=== PATIENT | female | born 1990 | race Caucasian/White ===

== ENCOUNTER 2021-04-01 15:08 | Inpatient (IN) | payer OTHER ==
[2021-04-01] MEDS: Lactated Ringers 1,000 ML IV SCH (17:20)
[2021-04-01] MEDS ORDERED: Naloxone 2 MG/2 ML Syringe IVPUSH PRN (17:21)
[2021-04-01] MEDS ORDERED: Misoprostol 400 MCG (4 X 100 MCG TAB) RECTAL PRN (17:21)
[2021-04-01] MEDS ORDERED: ceFAZolin 2 GM in Premix Bag 1 BAG IV ONE (17:21)
[2021-04-01] MEDS ORDERED: Acetaminophen 325 MG Tab PO PRN (17:21)
[2021-04-01] MEDS ORDERED: Carboprost Tromethamine 250 MCG/1 ML Amp IM PRN (17:21)
[2021-04-01] MEDS ORDERED: Methylergonovine 0.2 MG/1 ML Amp IM PRN (17:21)
[2021-04-01] MEDS ORDERED: Tranexamic Acid 1,000 MG in Sodium Chloride 0.9% 100 ML IV PRN (17:21)
[2021-04-01] MEDS ORDERED: diphenhydrAMINE 50 MG/ML SDV IVPUSH PRN (17:21)
[2021-04-01] MEDS ORDERED: Citric Acid/Sodium Citrate Solution 30 ML Cup PO ONE (17:21)
[2021-04-01] MEDS ORDERED: ePHEDrine 50 MG/ML SDV IVPUSH PRN (17:21)
[2021-04-01] MEDS ORDERED: Ondansetron 4 MG/2 ML SDV IVPUSH PRN (17:21)
[2021-04-01] MEDS ORDERED: Oxytocin/Normal Saline 30 UNIT/500 ML BAG IV SCH (17:30)
[2021-04-01] MEDS ORDERED: Ketorolac 30 MG/ML SDV IVPUSH ONE (18:00)
[2021-04-01] MEDS ORDERED: Tranexamic Acid 1,000 MG in Sodium Chloride 0.9% 100 ML IV ONE (18:00)
[2021-04-01] MEDS ORDERED: Dexamethasone 4 MG/ML SDV IV ONE (18:00)
[2021-04-01] MEDS ORDERED: Morphine PF 10 MG/10 ML SDV ONE (18:00)
[2021-04-01] MEDS ORDERED: Ondansetron 4 MG/2 ML SDV IV ONE (18:00)
[2021-04-01] MEDS ORDERED: Lactated Ringers 1,000 ML IV ONE (18:00)
--- NOTE | 2021-04-01 22:38 | HP ---
PATIENT IDENTIFICATION: Beena Grant is a 30-year-old G3, P2-0-0-2, intrauterine at 37-4/7 weeks confirmed with 20-2/7 week ultrasound, who presents with contractions. HISTORY OF PRESENT ILLNESS: The patient states contractions have been ongoing since earlier today, increasing in frequency and intensity to the point that she feels miserable, feels them in the lower abdomen, radiating to the back, feels tightening with them, and nothing seems to make them better and time has made them worse. To put this in context, she has had 2 previous C-sections, requests repeat low transverse . Her is complicated by impaired glucose tolerance with a negative 3-hour GTT and she is GBS negative. She was initially evaluated by nurse and approximately 2 hours later had cervical change. Therefore, is being admitted for repeat low transverse with contractions with cervical change. Records called for, reviewed as below, and supplemented by patient history. ALLERGIES: Bees cause her to swell up. MEDICATIONS: Listed as albuterol as needed, vitamins. 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 Past Surgical History: Remarkable for tonsil and adenoidectomy, myringotomy with intubation, and 2 previous C-sections as below. OB HISTORY: 1. First was done on 09/01/2014 at 41-3/7 weeks, delivered female, 7 pounds 5.3 ounces with intolerance, excessive bleeding, OP presentation. Meconium and amniotic fluid and intrapartum hemorrhage. 2. 12/28/2016, 40-1/7 weeks term male, 7 pounds 15 ounces. Attempted and then decided to proceed with repeat low transverse . ANTEPARTUM LABORATORIES: Reveal ABO blood type A positive, negative antibody. Rubella immune. Syphilis antibody is nonreactive. Negative hepatitis B surface antigen. Negative hep C, HIV, GC, and chlamydia. Wet prep within normal limits. One-hour GTT was 137. Passed 3-hour GTT. Quad screen felt to be within normal limits. GBS was negative on 03/22/2021. SOCIAL HISTORY: The patient lives in [place], [place]. She is to Guillermo, who is father of baby, who is working at [employer] and the patient works at the residential. She denies any alcohol, tobacco, or drug use. FAMILY HISTORY: Father, history of alcohol abuse as well as paternal grandmother. Maternal grandfather with asthma. No other family member had a cleft palate and another with an extra digit. In terms of defects, COPD in mother. Maternal grandmother had coronary artery disease. Multiple births run in the family and thyroid cancer in maternal aunt. Negative family history of clotting disorders, bleeding disorders, anesthesia problems, cystic fibrosis, or seizures. REVIEW OF SYSTEMS: The patient denies any recent cough, cold, fever, chills, sweats, problem with bowel or bladder habits. She denies any spotting, bleeding, or leaking. Otherwise, reviewed fully and felt to be contributory as above. OBJECTIVE: Vital Signs: Blood pressure 134/79, heart rate 83, temperature 98.8. Appearance: Female appears her stated age, acting appropriate. She is nontoxic in appearance. Uncomfortable when she was having her contractions, and at work when she was walking around had to stop and breathe through them. She is breathing through them currently when she is having them. HEENT: Head is atraumatic. EOMs intact. TRACEY. No scleral icterus. No obvious otorhinorrhea. Mucous membranes moist. Neck: No obvious tenderness. Lungs: Clear to auscultation bilaterally. No increased work of breathing. Heart: S1, S2. Regular rate and rhythm. Abdomen: Gravid. Bernard's indeterminate. Nontender, nondistended. Bowel sounds positive. No organomegaly, pulsatile masses, or hernias. No rebound, rigidity, or guarding. Pfannenstiel type scar noted. : Normal external female genitalia. Normal position and presentation of urethra. Vaginal exam, by my exam 1.5 cm, 60% effaced, ballotable presentation. This was changed from an earlier examination where she was felt to be a dimple thick and high. Extremities: Trace peripheral edema. Deep tendon reflexes 2 to 3 out of 4 bilaterally on inspection of extremities. Neurologic: Mood and affect congruent. Judgment and insight intact. Skin: No cyanosis, clubbing, or jaundice. heart tone baseline around the 140s and reactive and reassuring. Tocometer now revealing contractions every 2 to 3 minutes. Prior, it was 2 to 5 minutes apart. ASSESSMENT: 1. Intrauterine at 37-4/7 weeks confirmed with 20-2/7 week ultrasound. 2. Contractions with cervical change. Suspect active labor. 3. Previous sections x2, requests repeat low transverse section. 4. Impaired glucose tolerance. 5. Group B Streptococcus negative. 6. G3, P2-0-0-2. PLAN: Did discuss with the patient with contractions with cervical change, 2 previous C-sections, suspected labor, recommendation to proceed with repeat low transverse . I did discuss with her risks, benefits, alternatives, and complications of including, but not limited to, infection, bleeding, damage to organs such as bowel, bladder, tubes, uterus, ovaries, and sometimes fetus, rarely needing a blood transfusion or further surgery, and even rare maternal or . She understands, agrees, and wishes to proceed. Verbal and written consents were obtained, and questions were answered. We will proceed to the OR as soon as crew is ready and available. Will continue monitoring at this point in time. [facility] /[id number] MTDNikkie
[2021-04-01] MEDS: Simethicone 80 MG Tab.Chew PO SCH (23:04)
--- NOTE | 2021-04-01 23:32 | OBOUT ---
DATE: 04/01/2021 DATE AND TIME OF NST: 04/01/2021 from 1715 to 1717. REASON FOR NST: 1. Intrauterine 37-4/7 weeks confirmed with 20-2/7-week ultrasound. 2. Contractions with cervical change. 3. Previous x2, requests repeat low transverse . 4. Impaired glucose tolerance. 5. GBS negative. 6. G3, P2-0-0-2. NST INTERPRETATION: During this time period, heart tone baseline is approximately 140 with at least two 15 x 15 beats per minute acceleration making this strip reactive as well as reassuring. Tocometer reveals potential of 6 contractions during this time period, felt by patient. ASSESSMENT/PLAN: 1. Nonstress test - reactive and reassuring. 2. Tocometer with contractions. PLAN: We will proceed to the OR as soon as crew is ready and available. Please see H and P for further details. [facility] /[id number]
[2021-04-02] MEDS: Ketorolac 30 MG/ML SDV IVPUSH SCH ×3 (01:04→13:15)
[2021-04-02] MEDS: Lactated Ringers 1,000 ML IV SCH (03:49)
--- NOTE | 2021-04-02 07:24 | OR ---
DATE: 04/01/2021 PREOPERATIVE DIAGNOSES: 1. Intrauterine at 37-4/7th weeks, confirmed with 20-2/7th-week ultrasound. 2. Contractions with cervical change upon admission - labor. 3. Previous section x2, request for repeat low transverse section. 4. Impaired glucose tolerance. 5. Group B Streptococcus negative. 6. History of hemorrhage with previous deliveries. 7. G3, P2-0-0-2. POSTOPERATIVE DIAGNOSES: 1. Intrauterine at 37-4/7th weeks, confirmed with 20-2/7th-week ultrasound - delivered. 2. Contractions with cervical change upon admission - labor. 3. Previous section x2, request for repeat low transverse section. 4. Impaired glucose tolerance. 5. Group B Streptococcus negative. 6. History of hemorrhage with previous deliveries. 7. G3, P2-0-0-2. 8. TXA 1 g given after delivery of baby due to history of hemorrhage. 9. Nuchal cord x1, reduced bluntly at delivery. 10.Thin lower uterine segment. PROCEDURE PERFORMED: Nonstress test followed by repeat low transverse C- section. FIRST ASSISTANTS: 1. Sunita Turner MD. 2. Liz Melchor MS-IV, PGY-2. ANESTHESIA: Spinal. ESTIMATED BLOOD LOSS: 500 mL. IV FLUIDS: 1600 mL.. URINE OUTPUT: Clear yellow 500 mL.. START: 1827. UTERINE INCISION: 183. DELIVERY: 1829. STOP: 1849. FINDINGS: Male, score 7 and 9, weight pending. Nuchal cord x1, reduced bluntly at delivery. DESCRIPTION OF PROCEDURE: After proper consent was obtained, the patient was brought to the operating room where spinal anesthetic was administered. A Cook was placed under preop under sterile conditions. The abdomen was prepped and draped in normal sterile fashion. The patient was placed in supine position with left lateral tilt. A skin incision was then made over lower abdomen in transverse Pfannenstiel-type fashion over a previous scar and this was carried down to the fascia and scored in the midline. Subcutaneous tissues raked laterally with Ortez retractor and fascial incision was extended in transverse fashion using curved Wallace's. On the left, there was minimal layer of rectus muscle sheath and was essentially non-existent more lateral incision extended. Nando clamps x2 were then used to grasp the fascia superiorly and fascia was dissected from the rectus muscles using sharp blunt technique. In a similar fashion, Nando clamps x2 were used to grasp the inferior portion of the incision and rectus pyramidalis muscle dissected from the fascia using sharp and blunt technique. Rectus muscles were in midline with blunt technique, although left side had minimal layer. Abdominal cavity was entered with blunt technique, and incision was extended superiorly and inferiorly with blunt technique. Xiang O retractor was then introduced and used. Vesicouterine peritoneum was then identified and incised in transverse fashion with Metzenbaum scissors and bladder flap was made digitally. Curvilinear incision made on lower uterine segment at 1830 hours. Thin lower uterine segment was noted. Uterus was entered sharply. Clear fluid returned. Uterine incision was extended in transverse fashion using blunt technique. vertex was then delivered through the incision followed by rest of the without difficulty. A nuchal cord x1 reduced bluntly at delivery. Mouth and nares were suctioned. Cord was doubly clamped and cut, and infant was brought to team. Then, approximately 10 mL cord blood was obtained for labs. Placenta was then delivered with gentle cord traction and fundal massage. Uterine cavity was then cleared of all blood clots and debris with lap sponge. Campbell clamps were used to grasp the uterine incision. This was closed in a running locked fashion and tied at lateral margins with 1-0 Vicryl. Left midline and to the lateral portion incision, there was bleeding noted imbricating layer stitch with 1-0 Vicryl was placed over this area and 1 [id number] stitch was applied and hemostasis reassured. First inspection of the uterine incision revealed hemostasis. Xiang O retractor was then removed and paracolic gutters were then cleared of all blood clots and debris with lap sponge. Anterior cul-de-sac was irrigated copiously and all blood clots were removed. Second and final inspection of uterine incision and anterior cul-de-sac revealed hemostasis. Rectus muscles were then attempted to be reapproximated in midline with figure- of-eight stitch using 1-0 Vicryl. Left portion of the incision made on the peritoneum, was grasped as rectus muscle layer was essentially non-existent. Subfascial tissues were then found to be hemostatic and fascia was closed in a running fashion and tied at lateral margins with 0 looped PDS. Subcutaneous tissue be irrigated copiously and hemostasis reassured. Skin was reapproximated with medium mary. Sterile Aquacel dressing was applied. Uterine fundus was firm and massaged at the conclusion of the case, -2 below umbilicus. No immediate complications were noted. Sponge, lap, and needle counts were correct. The patient received 2 g of Ancef preoperatively, Pitocin per protocol, and will receive Toradol at the conclusion of the case for pain control. She also did receive 1 g of TXA after delivery of baby. Mother and infant are currently stable at time of dictation. [facility] /[id number]
[2021-04-02] MEDS ORDERED: Oxytocin/Normal Saline 30 UNIT/500 ML BAG IV ONE (09:11)
[2021-04-02] MEDS: Docusate Sodium 100 MG Cap PO PRN ×2 (09:16→21:27)
[2021-04-02] MEDS: Ferrous Sulfate 325 MG Tab PO SCH (09:16)
[2021-04-02] MEDS: Prenatal Multivitamin with Calcium/Folic Acid/Iron Tab PO SCH (09:16)
[2021-04-02] MEDS: Simethicone 80 MG Tab.Chew PO SCH ×4 (09:16→20:49)
--- NOTE | 2021-04-02 10:06 | PN ---
DATE: 04/02/2021 Postop day #1, status post repeat low transverse . SUBJECTIVE: The patient is tolerating p.o. Has sat up side of the bed. Cook is in place. Passing gas. Pain is under control. OBJECTIVE: Vital Signs: Temp 98, heart rate 88, blood pressure 116/63, and respiratory rate 16. Lungs: Clear to auscultation bilaterally. Heart: S1 and S2. Regular rate and rhythm. : Firm uterus, -2 below umbilicus. Aquacel dressing dry and intact. SCDs and SAGAR hose are on. LABORATORY DATA: White cell count 13, hemoglobin 9.9 compared to predelivery hemoglobin 11.6, and platelets 206. ASSESSMENT: 1. Postop day #1 status post repeat low transverse . 2. History of hemorrhage with previous deliveries. Did receive 1 g of TXA after delivery of the baby. 3. Anemia. Acute blood loss. Hemoglobin dropping down to 9.9. Currently asymptomatic. We will follow closely and follow clinically for any symptoms. PLAN: Did discuss with patient plan. Potential discharge discussed tomorrow afternoon versus and we will see how she is doing over the next day or so. She understands and agrees with the above treatment plan. Please see orders for further details as well. [facility] /[id number]
[2021-04-02] MEDS: Acetaminophen/oxyCODONE 325-5 MG Tab PO PRN ×3 (13:15→21:28)
[2021-04-02] MEDS: Ibuprofen 800 MG Tab PO PRN (21:31)
[2021-04-03] MEDS: Acetaminophen/oxyCODONE 325-5 MG Tab PO PRN ×5 (04:30→22:36)
--- NOTE | 2021-04-03 08:27 | PN ---
DATE: 04/03/2021 SUBJECTIVE: The patient is postop day #2 status post repeat low transverse section. The patient has been tolerating p.o. intake. She has been up and out of bed. Cook catheter was removed on postop day 1. She is passing gas and urinating appropriately. The patient has not had a bowel movement yet. The patient states pain is under control. States bleeding and lochia have been mild to moderate in degree. No lightheadedness or dizziness with ambulation. She still complains of mild to moderate peripheral edema. She denies associated symptoms of headache, vision changes, dizziness or lightheadedness. The patient is breast feeding. States this is going well. She is an experienced breast feeder, has breast fed her 2 other children. OBJECTIVE: Vital Signs: Temperature 98.3; HR 74 bpm, regular; RR 16 breaths per minute; BP 114/67; SpO2 of 100% on room air. Appearance: Sleeping comfortably in bed. HEENT: Within normal limits. Lungs: Clear to auscultation bilaterally. Heart: Regular rate and rhythm. No murmurs noted. Abdomen: Soft, distended, normoactive bowel sounds. Firm uterus, 2 cm below umbilicus. Incision: Aquacel dressing dry and intact. Extremities: 1+ nonpitting edema to lower extremities bilaterally. No tenderness to palpation of calves bilaterally. Encouraged to continue wearing compression stockings. ASSESSMENT: 1. Postop day #2 status post repeat low transverse section. 2. History of hemorrhage with previous delivery, did receive 1 g of TXA after delivery. 3. Anemia: Acute blood loss. Continues to be asymptomatic. Continue to watch closely and clinically. PLAN: The patient is unsure about potential discharge either later this afternoon versus tomorrow. She is concerned about circumcision today and feels like she would like to stay until to make sure baby breast feeds appropriately after circumcision. Discussed routine cares. The patient is in understanding with treatment plan. We will continue to follow closely and clinically. The patient was seen and evaluated today by myself and Dr. Zunilda Seymour. Assessment and plan are under advisement of Dr. Seymour. [facility] /[id number]
[2021-04-03] MEDS: Prenatal Multivitamin with Calcium/Folic Acid/Iron Tab PO SCH (09:10)
[2021-04-03] MEDS: Ibuprofen 800 MG Tab PO PRN ×2 (09:10→17:25)
[2021-04-03] MEDS: Simethicone 80 MG Tab.Chew PO SCH ×4 (09:10→21:34)
[2021-04-03] MEDS: Ferrous Sulfate 325 MG Tab PO SCH (09:10)
[2021-04-03] MEDS: Docusate Sodium 100 MG Cap PO PRN ×2 (09:20→21:34)
--- NOTE | 2021-04-03 11:26 | PN ---
DATE: 04/03/2021 SUBJECTIVE: Postoperative day #2 from a repeat low transverse section. The patient is doing well. She is ambulating and tolerating a regular diet, passing flatus, and voiding without difficulties. She has not yet had a bowel movement. No chest pain or shortness of breath. Normal amount of incisional pain and a small amount of vaginal bleeding noted. She has started to diurese more and swelling has decreased some, but she is still complaining of significant lower extremity edema even up into the thighs. Otherwise, seems to be going well, and she has no other complaints. OBJECTIVE: General: Well-appearing 30-year-old female. Vital Signs: Temperature is 98.3, pulse 70, blood pressure 116/72, respiratory rate of 16, and O2 saturations 98% on room air. Heart: Regular without murmur. Lungs: Clear to auscultation bilaterally. Abdomen: Mildly distended, soft, nontender. Hypoactive but present bowel sounds in all 4 quadrants. She has an Aquacel dressing in place without any strikethrough or saturation. Extremities: 1+ edema bilaterally with SAGAR hose on. Legs are not warm to touch and there is no obvious erythema at the areas that I pulled up the SAGAR hose on. LABORATORY: Hemoglobin down to 9.9 from a previous 11.6, platelets down to 206 from 227. ASSESSMENT: 1. Status post repeat low transverse section and doing well. 2. Impaired glucose tolerance during . 3. Thin lower uterine segments. 4. mother. PLAN: Continue normal postoperative cares anticipating discharge home tomorrow as long as all continues to go well. We will set her up for staple removal either at the end of this week or early next week. [facility] /[id number]
[2021-04-04] MEDS: Acetaminophen/oxyCODONE 325-5 MG Tab PO PRN ×2 (02:32→09:37)
[2021-04-04] MEDS: Ibuprofen 800 MG Tab PO PRN (02:34)
[2021-04-04] MEDS: Docusate Sodium 100 MG Cap PO PRN (09:37)
[2021-04-04] MEDS: Simethicone 80 MG Tab.Chew PO SCH (09:37)
[2021-04-04] MEDS: Prenatal Multivitamin with Calcium/Folic Acid/Iron Tab PO SCH (09:38)
[2021-04-04] MEDS: Ferrous Sulfate 325 MG Tab PO SCH (09:39)
[2021-04-04 17:21] VITALS: BP 122/74; PULSE 87
--- NOTE | 2021-04-05 02:19 | DISCH ---
ADMITTING DIAGNOSES: 1. Intrauterine at 37 weeks' 4 days' gestation, confirmed with 20 weeks' 2/7 days' gestation ultrasound. 2. Contractions with cervical change upon admission, labor. 3. Previous section x2. Requesting repeat low-transverse section. 4. Impaired glucose tolerance. 5. Group B Streptococcus negative. 6. History of hemorrhage with previous deliveries x2. 7. 3, para 2-0-0-2. DISCHARGE DIAGNOSES: 1. Intrauterine at 37 weeks' 4 days' gestation, confirmed with 20 weeks' 2/7 days' gestation ultrasound. 2. Contractions with cervical change upon admission, labor. 3. Previous section x2. Requesting repeat low-transverse section. 4. Impaired glucose tolerance. 5. Group B Streptococcus negative. 6. History of hemorrhage with previous deliveries x2. 7. 3, para 2-0-0-2. 8. TXA 1 g given after delivery of baby due to history of hemorrhage. 9. Nuchal cord x1 bluntly reduced at delivery. 10.Thin lower uterine segment. 11.. PROCEDURES PERFORMED: Nonstress test followed by repeat low transverse section. HISTORY OF PRESENT ILLNESS: Please see H and P and operative note for further details. SUMMARY OF HOSPITAL COURSE: Please see progress notes and postoperative note for specific details. Overall, the patient was admitted with above diagnoses on 04/01/2021. Presenting with complaints of increasing intensity and frequency of contractions with request for a repeat low transverse section at 37 weeks' 4 days' gestation. The patient went on to deliver a term male with score of 7 and 9 at one and five minutes respectively. weight of infant was 3295 g. time was 1830 on 04/01/2021 via repeat low transverse section. EBL was estimated to be about 500 mL. The patient received 1 g of TXA after delivery due to history of hemorrhage x2. The patient requested staple closure of incision with Surgicel dressing due to ease of mobility after delivery. The patient's course was noted to be immediately uncomplicated. day 1, please see progress note from said day. day 2, please see progress note from 04/03. The patient has been , eating, drinking, urinating appropriately. The patient is able to ambulate around the room. day 3, date of discharge. The patient continues to be doing well with an uncomplicated postoperative course. The patient is continuing to breastfeed infant. She is passing flatus. She has not had a bowel movement yet. She is ambulating, urinating, tolerating a p.o. diet appropriately. She does describe some incisional pain, but this is managed with p.o. medications. DISCHARGE PHYSICAL EXAMINATION: Vital Signs: Temp 98.5, HR 87 bpm, BP 122/74, RR 12 breaths per minute, oxygen saturation 99% on room air. HEENT: Within normal limits. Lungs: Clear to auscultation bilaterally. Heart: Regular rate and rhythm. No murmurs noted. Abdomen: Soft, mildly distended. Firm uterus palpated 2 cm below umbilicus. Incision: Clean, dry, and intact with Surgicel in place over top of staple incision closure. No shadowing noted on dressing. No surrounding erythema or edema around bandage site. Extremities: 1+ peripheral edema. No calf pain or tenderness with palpation. LABORATORY DATA: Hemoglobin 12 hours after procedure was noted to be 9.9, down from 11.6 prior to admission; hematocrit 29.7, down from 35.1 prior to operation. COVID negative. DISCHARGE DISPOSITION: Good. DISCHARGE INSTRUCTIONS: Please see discharge handout for details. The patient is to follow up in clinic in [address] Zunilda Seymour for incisional check. The patient is also to present with infant for routine cares after delivery. No lifting more than 20 pounds. No sit-ups or straining, and pelvic rest for next 6 weeks. Red flag symptoms were discussed with the patient and she is understanding of concerning signs and symptoms that prompt urgent re-evaluation. DISCHARGE MEDICATIONS: Colace 100 mg p.o. q.12 hours as needed, ferrous sulfate 325 mg p.o. daily with breakfast, ibuprofen 800 mg q.8 hours p.o., acetaminophen/oxycodone (Percocet) 2 tablets p.o. q.4 hours as needed, 30 tablets given to the patient with 0 refills. FOLLOWUP: In 7 to 10 days for incision check with Dr. Seymour. The patient was seen and evaluated today by myself and Dr. Zunilda Seymour. The patient's assessment and plan is under advisement of Dr. Seymour. [facility] /[id number]
== END 2021-04-04 11:50 | disposition home or self-care (01) | DRG 787 ==
LOC: DL.OBCHECK 15:08 → DL.OB 17:21 → OBSVTOIN 18:30
PROVIDERS: ADMIT Family Medicine; ATTEND Family Medicine
PROC: 10D00Z1 Extraction of Products of Conception, Low, Open Approach (ICD-10-PCS; principal; 2021-04-01)
DX: O34.211 Maternal care for low transverse scar from previous cesarean delivery (principal); D62 Acute posthemorrhagic anemia; Z37.0 Single live birth; O99.814 Abnormal glucose complicating childbirth; O69.81X0 Labor and delivery complicated by cord around neck, without compression, not applicable or unspecified; O99.02 Anemia complicating childbirth; Z20.822 Contact with and (suspected) exposure to COVID-19; Z3A.37 37 weeks gestation of pregnancy; Z91.030 Bee allergy status; Z98.890 Other specified postprocedural states; Z28.82 Immunization not carried out because of caregiver refusal
CPT/HCPCS: 01961; 36415; 85027; 86850; 86900; 86901; A9270-GY; J0690; J1100; J1200; J1885; J2270; J2405; J2590; J7120; U0002